=== PATIENT | male | born 1970 | race Caucasian/White ===

== ENCOUNTER 2022-08-03 15:38 | Emergency (ER) | payer OTHER ==
[~2022-08-03] VITALS: Ht 185.4 cm; Wt 181.4 kg
--- NOTE | 2022-08-03 15:45 | NUR ---
LEFT WRIST PAIN AFTER PICKING UP A JUG YESTERDAY AT A STORE.
[2022-08-03 15:51] VITALS: BP 123/75
[2022-08-03] MEDS ORDERED: KETOROLAC TROMETHAMINE INJ 30 MG/ML VIAL ONE (16:28)
[2022-08-03] MEDS ORDERED: KETOROLAC TROMETHAMINE INJ 30 MG/ML VIAL IM ONE (16:30)
[2022-08-03] MEDS ORDERED: NAPR500T6 PO (17:39)
--- NOTE | 2022-08-03 18:05 | NUR ---
Patient discharged to home in stable condition. Written and verbal after care instructions given. Patient verbalizes understanding of instruction.
== END 2022-08-03 18:04 | disposition home or self-care (01) ==
LOC: ER 16:06
DX: M25.532 Pain in left wrist (principal); Z60.2 Problems related to living alone
CPT/HCPCS: 99283; 96372; 73110; J1885

== ENCOUNTER 2023-04-10 21:36 | Emergency (ER) | payer OTHER ==
[~2023-04-10] VITALS: Ht 185.4 cm; Wt 163.3 kg
[~2023-04-10 21:36] MED LIST: NAPR500T6 PO
--- NOTE | 2023-04-10 23:55 | NUR ---
BIBSELF FROM HOME C/O R FOOT PAIN, NUMBNESS X1 MONTH
--- NOTE | 2023-04-11 00:15 | NUR ---
DR CAMACHO AT BEDSIDE
--- NOTE | 2023-04-11 00:35 | NUR ---
Patient discharged to home in stable condition. Written and verbal after care instructions given. Patient verbalizes understanding of instruction.
[2023-04-11 00:42] VITALS: BP 141/79; TEMP 99; O2SAT 100
== END 2023-04-11 00:42 | disposition home or self-care (01) ==
LOC: ER 21:39
DX: R20.2 Paresthesia of skin (principal); Z60.2 Problems related to living alone

== ENCOUNTER 2024-06-19 11:28 | Emergency (ER) | payer OTHER ==
[~2024-06-19] VITALS: Ht 185.4 cm; Wt 158.8 kg
[2024-06-19] MEDS ORDERED: ACETAMINOPHEN ES 500 MG TABLET ONE (13:19)
[2024-06-19] MEDS: ACETAMINOPHEN ES 500 MG TABLET PO ONE (13:23)
[2024-06-19] MEDS ORDERED: OXYC-128 PO (15:45)
[2024-06-19 16:09] VITALS: BP 118/77; TEMP 98.3; O2SAT 96
== END 2024-06-19 16:10 | disposition home or self-care (01) ==
LOC: ER 11:51
DX: M25.552 Pain in left hip (principal)
CPT/HCPCS: 73502; 73552; 73590-TC